=== PATIENT | male | born 1965 | race Caucasian/White ===

== ENCOUNTER → 2017-11-13 | Outpatient (CLI) | payer BC | END | disposition home or self-care (01) | LOC: C.LAB 15:52 | PROVIDERS: ATTEND Urology | DX: N40.0 Benign prostatic hyperplasia without lower urinary tract symptoms (principal); R97.20 Elevated prostate specific antigen [PSA] ==

== ENCOUNTER → 2017-12-04 | Outpatient (CLI) | payer BC ==
[~2017-12-04] MED LIST: GADAVIST IV PRN
--- NOTE | 2017-12-04 15:28 | DIAGNOSTIC IMAGING REPORT ---
PROSTATE MRI COMBO CLINICAL HISTORY: Elevated serum PSA. . COMPARISON STUDY: No priors. TECHNIQUE: Multisequence, multiplanar MR imaging of the prostate was performed before and after the administration of intravenous contrast. Additional postprocessing was performed on a separate [email or web address] workstation by the radiologist for 3-D volumetric segmentation of the prostate and contouring of region(s) of interest (KELIN) for targeting. IV contrast: 9.5 cc of Gadavist. FINDINGS: Prostate: The prostate measures 3.7 cm in transverse diameter (DynaCAD prostate boundary segmentation volume 21.1 cc). Mild changes of benign prostatic hyperplasia. Precontrast T1 weighted imaging demonstrates no evidence of intrinsic T1 hyperintensity to suggest hemorrhage. Suspicious lesion(s) described below: Lesion (DynaCAD KELIN) 1: Location: Right transition zone at the mid gland slightly anteriorly. The lesion does not extend across the midline. Size: 10 mm (as measured on ADC for PZ lesion and T2WI for TZ lesion) T2W: 4. Circumscribed, homogeneous moderately hypointense lesion. No evidence of extraprostatic extension, seminal vesicle invasion, or neurovascular bundle involvement. DWI: 3. Focal mildly/moderately hypointense on ADC and isointense/mildly hyperintense on high b-value DWI. DCE: Negative. No early enhancement. PI-RADS: 3. The presence of clinically significant cancer is equivocal. Seminal vesicles normal. Bladder: The bladder wall is thickened and trabeculated consistent with chronic outlet obstruction. Bowel: Visualized portion of the rectum normal. Peritoneum: No free fluid in the pelvis. Lymph nodes: No lymphadenopathy in the visualized portion of the pelvis. Vasculature: Iliac vessels patent. Abdominal wall: Normal. Osseous structures: Normal bone marrow signal intensity. IMPRESSION: 1. Question a 10 mm lesion in the right transition zone at the mid gland. PI-RADS: 3. The presence of clinically significant cancer is equivocal. This lesion has been segmented for targeted biopsy. 2. Mild changes of benign prostatic hyperplasia with evidence of chronic bladder outlet obstruction. Electronically signed by: Jonh Thompson M.D. 12/04/2017 3:26 PM Dictated Date/Time: 12/04/2017 3:11 PM
== END | disposition home or self-care (01) ==
LOC: C.MRIBC 11-17 13:10
PROVIDERS: ATTEND Urology
DX: R97.20 Elevated prostate specific antigen [PSA] (principal); N42.9 Disorder of prostate, unspecified

== ENCOUNTER → 2017-12-22 | Outpatient (CLI) | payer BC | LOC: C.PATHSPEC 17:44 | PROVIDERS: ATTEND Urology | DX: C61 Malignant neoplasm of prostate (principal) ==

== ENCOUNTER → 2018-01-04 | Outpatient (CLI) | payer BC ==
--- NOTE | 2018-01-04 16:08 | DIAGNOSTIC IMAGING REPORT ---
BONE SCAN WHOLE BODY HISTORY: 52 years-old Male C61 Prostate [id number] surveillance study in a patient with history of prostate cancer COMPARISON: Prostate MRI 12/04/2017 TECHNIQUE: Anterior and posterior whole-body planar scintigraphic images were obtained for bone scan utilizing 20.8 mCi technetium 99 MDP. Scan was obtained 3 hours post injection. FINDINGS: Physiologic tracer activity is noted about the soft tissues, kidneys, collecting systems and urinary bladder. Mildly increased tracer activity about the bilateral knees, left greater than right is noted in addition to moderate uptake about the bilateral shoulders within the region of the AC joints, likely degenerative. Moderate focal area of radiotracer uptake seen within the region of the right first MTP joint medially. No suspicious lesions are identified within the axial or appendicular skeletal system to suggest metastasis. No photopenic defects identified. No abnormal soft tissue uptake. IMPRESSION: 1. No abnormal uptake identified to suggest metastatic disease within the axial or appendicular skeletal system. 2. Moderate focal area of radiotracer uptake within the region of the right first MTP joint medially suggests degenerative change such as sesamoiditis. The above report was generated using voice recognition software. It may contain grammatical, syntax or spelling errors. Electronically signed by: Uriel Vargas M.D. 01/04/2018 4:07 PM Dictated Date/Time: 01/04/2018 4:01 PM
== END | disposition home or self-care (01) ==
LOC: C.NUCL 11:38
PROVIDERS: ATTEND Urology
DX: C61 Malignant neoplasm of prostate (principal)